=== PATIENT | female | born 1985 | race American Indian/Alaskan Native ===

== ENCOUNTER 2018-01-18 11:27 | Emergency (ER) | payer SELFPAY ==
[2018-01-18 11:38] VITALS: BP 139/78
--- NOTE | 2018-01-18 12:33 | Emergency Department Report ---
ED Rash HPI - HPI Chief Complaint: Extremity Problem,Nontraumatic Stated Complaint: FINGER SWOLLEN Time Seen by Provider: 01/18/18 12:16 Duration: 2 Days Location: Other (left index finger) Rash Symptoms: Yes Blistering Severity: mild Other History: Anabelle is a healthy 32 yo female with blister on left index finger. She felt a sharp stinging sensation while laying in bed a few nights ago. No known trauma otherwise ED Review of Systems ROS: Stated complaint: FINGER SWOLLEN Other details as noted in HPI Constitutional: denies: fever, malaise Skin: rash, lesions Neurological: denies: numbness, paresthesias ED Past Medical Hx - Past Medical History Previous Medical History?: No - Surgical History Past Surgical History?: No - Social History Smoking Status: Current Every Day Smoker Substance Use Type: None - Medications Home Medications: Home Medications Medication Instructions Recorded Confirmed Last Taken Type Sulfamethoxazole/Trimethoprim 1 each PO BID 14 Days #7 tablet 01/18/18 Unknown Rx [Bactrim DS TAB] Rash Exam - Exam General: Vital signs noted. No distress. Alert and acting appropriately. HEENT: No Periorbital Edema, No Conjuctival Injection, No Chemosis, No Perioral Edema, No Tongue Edema, No Uvular Edema, No Compromised Airway, No Drooling Lungs: No Labored Respirations, No Retractions, No Use of Accessory Muscles Skin: Yes Other (1 cm blister with surrounding redness proximal left index finger, mild swelling, FROM at [facility] D[facility] PIP) ED Course Vital Signs 01/18/18 11:35 Temperature 98.9 F Pulse Rate 95 H Respiratory 16 Rate Blood Pressure 139/78 O2 Sat by Pulse 98 Oximetry ED Medical Decision Making - Medical Decision Making smalll finger abscess/cellulitis, mild infection, no signs of tenosynovitis rx: bactrim, warm soaks Critical care attestation.: If time is entered above; I have spent that time in minutes in the direct care of this critically ill patient, excluding procedure time. ED Disposition Clinical Impression: Abscess of finger of left hand Disposition: DC-01 TO HOME OR SELFCARE Is pt being admited?: No Does the pt Need Aspirin: No Condition: Stable Instructions: Abscess (ED) Prescriptions: Sulfamethoxazole/Trimethoprim [Bactrim DS TAB] 1 each PO BID 14 Days #7 tablet Time of Disposition: 12:33
== END 2018-01-18 12:40 | disposition home or self-care (01) ==
LOC: ED 11:27
DX: L02.512 Cutaneous abscess of left hand (principal); F17.200 Nicotine dependence, unspecified, uncomplicated
CPT/HCPCS: 99281